=== PATIENT | male | born 1960 | race Caucasian/White ===

== ENCOUNTER 2025-01-21 15:36 | Emergency (ER) | payer SELFPAY ==
[~2025-01-21] VITALS: Ht 177.8 cm; Wt 82.0 kg
[2025-01-21 15:37] VITALS: BP 140/83; PULSE 53; RESP 18; TEMP 36.8; O2SAT 98
[2025-01-21 16:12] LABS: BASOPHILS % 0.7 % (0.0-2.0); EOSINOPHILS % 2.7 % (0.0-5.0); HEMATOCRIT. 40.4 % (42.0-52.0); HEMOGLOBIN. 13.3 g/dL (14.0-18.0); LYMPHOCYTES % 20.6 % (20.0-50.0); MEAN CORPUSCULAR HEMOGLOBIN 28.3 pg (28.0-32.0); MEAN CORPUSCULAR HGB CONC 32.9 g/dL (31.0-37.0); MEAN CORPUSCULAR VOLUME 86.1 fL (80.0-94.0); MEAN PLATELET VOLUME 7.2 fl (7.4-10.4); MONOCYTES % 6.7 % (2.0-8.0); NEUTROPHILS % 69.3 % (40.0-76.0); PLATELET 270 x1000/uL (130-400); RED CELL DISTRIBUTION WIDTH 15.2 % (11.6-14.6); WHITE BLOOD COUNT 6.1 x1000/uL (4.5-11.0)
[2025-01-21 16:20] LABS: CARBON DIOXIDE 29 mEq/L (21-32); CHLORIDE 102 mEq/L (98-107); POTASSIUM 3.9 mEq/L (3.5-5.1); SODIUM 137 mEq/L (136-145)
[2025-01-21 16:21] LABS: CALCIUM 9.2 mg/dL (8.7-10.4)
[2025-01-21 16:25] LABS: CREATININE 0.5 mg/dL (0.6-1.3)
[2025-01-21 16:26] LABS: GLUCOSE 93 mg/dL (70-105); UREA NITROGEN BLOOD 8 mg/dL (9-23)
[2025-01-21 16:27] LABS: ALANINE AMINOTRANSFERASE < 7 IU/L (10-49); ASPARTATE AMINOTRANSFERASE 17 IU/L (<34)
[2025-01-21 16:28] LABS: ALBUMIN 3.6 g/dL (3.2-4.8); BILIRUBIN DIRECT < 0.1 mg/dL (<=3.0); BILIRUBIN TOTAL 0.3 mg/dL (0.1-1.0); PROTEIN TOTAL 7.3 g/dL (6.0-8.3); TROPONIN I HIGH SENSITIVITY < 4 ng/L (3.0-53)
== END 2025-01-21 16:59 | disposition home or self-care (01) ==
LOC: ER 15:36
DX: S00.31XA Abrasion of nose, initial encounter (principal); R53.1 Weakness; M79.10 Myalgia, unspecified site; X58.XXXA Exposure to other specified factors, initial encounter; Y93.89 Activity, other specified; Y92.89 Other specified places as the place of occurrence of the external cause; Y99.8 Other external cause status
CPT/HCPCS: 36415; 80048; 80076; 80320; 84484; 85025; 99284; G0480